=== PATIENT | male | born 1960 | race Caucasian/White ===

== ENCOUNTER 2016-05-28 02:04 | Emergency (ER) | payer OTHER | END 2016-05-28 04:04 | disposition home or self-care (01) | LOC: ER 02:04 | DX: S68.117A Complete traumatic metacarpophalangeal amputation of left little finger, initial encounter (principal); W20.8XXA Other cause of strike by thrown, projected or falling object, initial encounter; Y92.488 Other paved roadways as the place of occurrence of the external cause | CPT/HCPCS: 96365 ==